=== PATIENT | female | born 1955 | race African-American/Black ===

== ENCOUNTER 2019-04-28 08:08 | Emergency (ER) | payer OTHER ==
[~2019-04-28] VITALS: Ht 152.4 cm; Wt 85.7 kg
[2019-04-28 09:10] LABS: PLATELET COUNT 253 K/uL (152-353)
[2019-04-28 09:49] LABS: POTASSIUM 3.7 mmol/L (3.6-5.2)
[2019-04-28 11:10] VITALS: BP 198/95; TEMP 98.1
== END 2019-04-28 11:10 | disposition home or self-care (01) ==
LOC: ED 08:08
PROVIDERS: Family Medicine
DX: J20.9 Acute bronchitis, unspecified (principal); R05 Cough; F17.210 Nicotine dependence, cigarettes, uncomplicated
CPT/HCPCS: 80053; 81000; 85027; 94664; 96372; 99283; J2930

== ENCOUNTER 2022-08-04 15:02 | Outpatient (CLI) | payer OTHER ==
[2022-08-04 15:45] LABS: PLATELET COUNT 284 K/uL (152-353)
[2022-08-04 15:59] LABS: POTASSIUM 3.4 mmol/L (3.6-5.2)
== END 2022-08-04 19:05 | disposition home or self-care (01) ==
LOC: RAD 15:02
PROVIDERS: ATTEND Family Medicine
DX: J44.9 Chronic obstructive pulmonary disease, unspecified (principal); E11.9 Type 2 diabetes mellitus without complications; E78.49 Other hyperlipidemia; M25.569 Pain in unspecified knee; M25.541 Pain in joints of right hand; E55.9 Vitamin D deficiency, unspecified; I11.0 Hypertensive heart disease with heart failure; I50.9 Heart failure, unspecified
CPT/HCPCS: 36415; 80053; 80061; 81002; 82306; 83036; 84439; 84443; 84550; 85027

== ENCOUNTER 2022-11-11 08:11 | Outpatient (CLI) | payer OTHER | END 2022-11-11 19:17 | disposition home or self-care (01) | LOC: RESP 08:11 | PROVIDERS: ATTEND Internal Medicine Endocrinology, Diabetes & Metabolism | DX: R01.1 Cardiac murmur, unspecified (principal) ==